=== PATIENT | female | born 1985 | race Caucasian/White ===

== ENCOUNTER 2018-05-07 08:27 | Emergency (ER) | payer MEDICAID ==
[~2018-05-07] VITALS: Ht 175.3 cm; Wt 61.2 kg
[2018-05-07 08:33] VITALS: BP 119/82
[2018-05-07] MEDS ORDERED: BACITRACIN TOP OINT 1 UD PKG TOP ONE (09:00)
[2018-05-07] MEDS ORDERED: cefTRIAXone SOD 1,000 MG VL IM ONE (09:00)
[2018-05-07] MEDS ORDERED: LET TOPICAL SOLN 5 ML TOP ONE (09:00)
[2018-05-07] MEDS ORDERED: LIDOCAINE 1% (LOCAL ANESTH.) PF 5ml SDV ID ONE (09:00)
[2018-05-07] MEDS ORDERED: HYDROcodone-ACET 10/325MG TAB PO ONE (09:00)
[2018-05-07] MEDS ORDERED: LIDOCAINE W/ EPINEPHRINE 1 % INJ 30ML ONE (09:07)
[2018-05-07] MEDS ORDERED: ONDANSETRON ODT 4 MG TAB PO ONE (09:15)
== END 2018-05-07 10:20 | disposition home or self-care (01) ==
LOC: ER 08:27
DX: L02.01 Cutaneous abscess of face (principal); Z88.2 Allergy status to sulfonamides
CPT/HCPCS: 10060; 96372; 99283; J0696; J2001; Q0162